=== PATIENT | male | born 1990 | race Caucasian/White ===

== ENCOUNTER 2024-11-03 07:55 | Emergency (ER) | payer OTHER ==
[~2024-11-03] VITALS: Ht 175.3 cm; Wt 108.9 kg
[~2024-11-03 07:55] MED LIST: Amoxicillin500 MG PO; BUPR100 PO; BUPR100ER PO; BUPR150ER PO; BUSP15 PO; CHLORHEXIDINE FL1 ML PO; CITA10S PO; CITA20 PO; FLUOXETINE HCL20 M1 PO; LISI20 PO; LISI5 PO; LORA1 PO; METO50ER PO; NICO2 PO; ONDA4ODT MM; OZEMPIC0.25 MG/02 SQ
[2024-11-03 08:29] VITALS: BP 160/111
[2024-11-03 09:17] LABS: CORONAVIRUS COVID-19 AG Negative (NEGATIVE); INFLUENZA A AG Negative (NEGATIVE); INFLUENZA B AG Negative (NEGATIVE)
== END 2024-11-03 10:12 | disposition home or self-care (01) ==
LOC: ER 07:55
PROVIDERS: Physician Assistant
DX: J39.9 Disease of upper respiratory tract, unspecified (principal); B97.89 Other viral agents as the cause of diseases classified elsewhere; Z87.891 Personal history of nicotine dependence; I10 Essential (primary) hypertension; F41.9 Anxiety disorder, unspecified; Z88.2 Allergy status to sulfonamides; Z88.8 Allergy status to other drugs, medicaments and biological substances; Z79.899 Other long term (current) drug therapy
CPT/HCPCS: 71046; 87428-QW; 99283-25

== ENCOUNTER 2025-06-01 10:14 | Emergency (ER) | payer OTHER ==
[~2025-06-01] VITALS: Ht 175.3 cm; Wt 111.1 kg
[2025-06-01 10:16] VITALS: BP 151/94
[2025-06-01] MEDS ORDERED: Ipratropium Bromide INH 0.02% 0.5 mg/2.5ML Vial INH ONE (12:15)
[2025-06-01] MEDS ORDERED: Albuterol 2.5 MG/3 ML VIAL INH ONE (12:15)
[2025-06-01] MEDS ORDERED: AMOCLA875 PO ×2 (12:26→12:32)
== END 2025-06-01 12:27 | disposition home or self-care (01) ==
LOC: ER 10:14
DX: J18.0 Bronchopneumonia, unspecified organism (principal); I10 Essential (primary) hypertension; Z87.891 Personal history of nicotine dependence; Z88.2 Allergy status to sulfonamides; Z88.8 Allergy status to other drugs, medicaments and biological substances; Z79.899 Other long term (current) drug therapy; Z79.85 Long-term (current) use of injectable non-insulin antidiabetic drugs; Z59.89 Other problems related to housing and economic circumstances
CPT/HCPCS: 71046; 99283-25